=== PATIENT | male | born 1955 ===

== ENCOUNTER 2017-12-21 16:03 | Emergency (ER) | payer MEDICAID ==
--- NOTE | 2017-12-21 16:32 | ED PDOC ---
Arrival/HPI - General Time Seen by Provider: 12/21/17 16:20 Historian: Patient, Spouse () - History of Present Illness Narrative History of Present Illness (Text): 12/21/17 16:28 A 62 year old male, whose past medical history includes AICD pacemaker (patient currently taking blood thinners), and 1 stent to heart, whom is accompanied by , presents to the emergency department complaining of lower back pain and cough. Patient reports having back pain for 1 week and has difficulty sitting, laying down, and moving around due to pain. Notes associated cough makes pain worse. Patient mentions also feeling as though "something is stuck in throat" causing cough. States visiting his doctor and was prescribed cough medication but has had no relief. Patient denies any fall, appetite changes, difficulty speaking or swallowing, or any other complaints at this time. Denies any EtOH abuse and no longer smokes (has not smoked for 2 years). Past Medical History - Provider Review Nursing Documentation Reviewed: Yes Family/Social History - Physician Review Nursing Documentation Reviewed: Yes Family/Social History: No Known Family HX Allergies/Home Meds Allergies/Adverse Reactions: Allergies No Known Allergies Allergy (Verified 12/21/17 16:47) Review of Systems - Physician Review All systems were reviewed & negative as marked: Yes - Review of Systems Constitutional: absent: Other (no falls) ENT: absent: Sore Throat Respiratory: Cough (worsens back pain). absent: SOB Gastrointestinal: absent: Appetite Changes Musculoskeletal: Back Pain (lower) Physical Exam Vital Signs Reviewed: Yes Vital Signs Temp Pulse Resp BP Pulse Ox 12/21/17 16:35 97.9 F 70 18 114/51 L 94 L - Systems Exam Head: Present: Atraumatic, Normocephalic Pupils: Present: PERRL Extroacular Muscles: Present: EOMI Conjunctiva: Present: Normal Mouth: Present: Moist Mucous Membranes Neck: Present: Normal Range of Motion Respiratory/Chest: Present: Clear to Auscultation, Good Air Exchange, Other ( palpable left upper chest wall pacemaker). No: Respiratory Distress, Accessory Muscle Use Cardiovascular: Present: Regular Rate and Rhythm, Normal S1, S2. No: Murmurs Abdomen: Present: Normal Bowel Sounds. No: Tenderness, Distention, Peritoneal Signs Back: Present: Paraspinal Tenderness (right para-lumbar tenderness to palpation) Upper Extremity: Present: Normal Inspection. No: Cyanosis, Edema Lower Extremity: Present: Normal Inspection, Neurovascularly Intact, Other ( negative straight leg raise). No: Edema Neurological: Present: GCS=15, CN II-XII Intact, Speech Normal Skin: Present: Warm, Dry, Normal Color. No: Rashes Psychiatric: Present: Alert, Oriented x 3, Normal Insight, Normal Concentration Medical Decision Making ED Course and Treatment: 12/21/17 16:32 Impression: 62 year old male with lower back pain and associated cough that worsens pain. Physical exam show para-lumbar tenderness to palpation; negative straight leg raise; palpable left upper chest wall pacemaker. Plan: -- Chest X-ray -- Reassess and disposition Progress Notes: - RAD Interpretation Radiology Orders: 12/21/17 16:54 CHEST TWO VIEWS (PA/LAT) [RAD] Stat - Medication Orders Current Medication Orders: Tramadol HCl (Ultram) 50 mg PO STAT STA Stop: 12/21/17 17:35 - Scribe Statement The provider has reviewed the documentation as recorded by the Howard Ball Provider Scribe Attestation: All medical record entries made by the Scribe were at my direction and personally dictated by me. I have reviewed the chart and agree that the record accurately reflects my personal performance of the history, physical exam, medical decision making, and the department course for this patient. I have also personally directed, reviewed, and agree with the discharge instructions and disposition. Disposition/Present on Arrival - Present on Arrival Any Indicators Present on Arrival: No History of DVT/PE: No History of Uncontrolled Diabetes: No Urinary Catheter: No History of Decub. Ulcer: No - Disposition Have Diagnosis and Disposition been Completed?: Yes Diagnosis: Back pain, Cough Disposition: HOME/ ROUTINE Disposition Time: 17:40 Patient Plan: Discharge Condition: STABLE Prescriptions: Promethazine DM [Phenergan DM Syrup] 10 ml PO TID PRN #120 ml PRN Reason: Cough traMADol [Ultram] 50 mg PO TID PRN #20 tab PRN Reason: Muscle Spasm
[2017-12-21 16:36] VITALS: BP 114/51; PULSE 70; RESP 18; TEMP 97.9; O2SAT 94
--- NOTE | 2017-12-21 18:04 | RAD ---
HISTORY: Cough. COMPARISON: No prior. TECHNIQUE: Chest PA and lateral FINDINGS: LUNGS: No active pulmonary disease. PLEURA: No significant pleural effusion identified. No pneumothorax apparent. CARDIOVASCULAR: No radiographic findings to suggest acute or significant cardiovascular disease. Position/ configuration of pacemaker device: Satisfactory. OSSEOUS STRUCTURES: No significant abnormalities. VISUALIZED UPPER ABDOMEN: Normal. OTHER FINDINGS: None. IMPRESSION: No active disease.
== END 2017-12-21 17:47 | disposition home or self-care (01) ==
LOC: MERGE 16:03 → ED 16:03
DX: M54.5 Low back pain (principal); R05 Cough

== ENCOUNTER 2018-07-26 14:52 | Observation (INO) | payer MEDICAID ==
[2018-07-26 14:52] VITALS: BMI 29.2
--- NOTE | 2018-07-26 15:35 | ED PDOC ---
Arrival/HPI - General Chief Complaint: Shortness Of Breath Time Seen by Provider: 07/26/18 15:22 Historian: Patient - History of Present Illness Narrative History of Present Illness (Text): 07/26/18 15:35 Patient is a 62 year old male whose past medical history includes AICD pacemaker (place 3 years ago) presenting with a complaint of productive cough with green phlegm. Patient was recently diagnosed with pneumonia approximately 2 weeks ago. He was first treated as an outpatient by his PMD with an antibiotic for 5 days. His cough did not resolve so he was instructed to go to the emergency room. [place] [facility] [place] with pneumonia and "water on the lung". They wanted to keep him inpatient but he refused. He was given antibiotics for 7 days. Patient states that he took the complete course but did not get better. He called his primary care physician who instructed him to come back to the emergency room. Patient also reports that as he has been having coughing episodes, he has been shocked by his defibrillator multiple times over the past couple of days. He has been experiencing episodes of shortness of breath, chest pain and worsening fatigue. He is experiencing intermittent cramping. Denies fevers, chills, nausea, vomiting, diarrhea, constipation, headaches, numbness or tingling. Patient admitted medical non-compliance to nursing staff. PMD: Dr. Cruz Cardiology: Dr. George Owens ACID information: [email or web address] Model/Serial: [id number] Lead: [id number] 07/26/18 16:35 Time/Duration: > month Symptom Course: Unchanged Quality: Cramping (abd), Other (shocking - chest) Past Medical History - Provider Review Nursing Documentation Reviewed: Yes - Infectious Disease Hx of Infectious Diseases: None - Cardiac Hx Pacemaker: Yes Other/Comment: cardiac stent - Pulmonary Hx Respiratory Disorders: Yes Hx Chronic Obstructive Pulmonary Disease (COPD): Yes Hx Pneumonia: Yes - Neurological Hx Neurological Disorder: Yes HX Cerebrovascular Accident: Yes (2015-LOSS PERIPHERIAL VISION LEFT EYE) - HEENT Hx HEENT Disorder: Yes Other/Comment: HX: 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 - Renal Hx Renal Disorder: No - Endocrine/Metabolic Hx Endocrine Disorders: No - Hematological/Oncological Hx Blood Disorders: No - Integumentary Hx Dermatological Disorder: No - Musculoskeletal/Rheumatological Hx Musculoskeletal Disorders: Yes Other/Comment: HX: TORN [place]ANI[place] RIGHT KNEE - Gastrointestinal Hx Gastrointestinal Disorders: No - Genitourinary/Gynecological Hx Genitourinary Disorders: Yes Hx Prostate Problems: Yes Other/Comment: HX:STRICTURE - Psychiatric Hx Psychophysiologic Disorder: No Hx Substance Use: No - Surgical History Hx Coronary Stent: Yes (X3) - Anesthesia Hx Anesthesia: Yes Hx Anesthesia Reactions: No Hx Malignant Hyperthermia: No Family/Social History - Physician Review Nursing Documentation Reviewed: Yes Family/Social History: Unknown Family HX Smoking Status: Former Smoker Hx Alcohol Use: No Hx Substance Use: No Allergies/Home Meds Allergies/Adverse Reactions: Allergies No Known Allergies Allergy (Verified 05/26/17 09:59) Home Medications: Home Meds Medication Instructions Recorded Confirmed Aspirin [Aspirin Chewable] 81 mg PO DAILY 07/26/18 07/26/18 Atorvastatin [Lipitor] 20 mg PO DAILY 07/26/18 07/26/18 Carvedilol [Coreg] 6.25 mg PO BID 07/26/18 07/26/18 Clopidogrel [Plavix] 75 mg pe PO DAILY 07/26/18 07/26/18 Valsartan [Diovan] 80 mg PO DAILY 07/26/18 07/26/18 Review of Systems - Physician Review All systems were reviewed & negative as marked: Yes - Review of Systems Constitutional: Fatigue. absent: Weight Change, Fevers, Night Sweats Eyes: Normal. absent: Vision Changes ENT: Normal. absent: Sore Throat Respiratory: SOB, Cough, Sputum (green). absent: Wheezing Cardiovascular: Chest Pain (shocking pain). absent: Palpitations, Edema, Calf Pain, HERNANDEZ, Syncope Gastrointestinal: Abdominal Pain (cramping). absent: Constipation, Diarrhea, Nausea, Vomiting, Appetite Changes Genitourinary Male: Normal. absent: Dysuria, Frequency Musculoskeletal: Normal Skin: Normal. absent: Rash Neurological: Normal. absent: Headache, Dizziness Endocrine: Normal. absent: Diaphoresis Hemo/Lymphatic: Normal Psychiatric: Normal. absent: Anxiety, Depression Physical Exam Vital Signs Reviewed: Yes Vital Signs Temp Pulse Resp BP Pulse Ox 07/26/18 15:17 18 07/26/18 15:02 98.3 F 66 20 156/93 H 96 Temperature: Afebrile Blood Pressure: Hypertensive Pulse: Regular Respiratory Rate: Normal Appearance: Positive for: Well-Appearing, Non-Toxic, Comfortable Pain Distress: None Mental Status: Positive for: Alert and Oriented X 3 - Systems Exam Head: Present: Atraumatic, Normocephalic Pupils: Present: PERRL Extroacular Muscles: Present: EOMI Conjunctiva: Present: Normal Mouth: Present: Moist Mucous Membranes Pharnyx: Present: Normal. No: ERYTHEMA, EXUDATE, TONSILS ENLARGED Nose (Internal): Present: Normal Inspection, No Active Bleeding, Moist Neck: Present: Normal Range of Motion. No: JVD, Lymphadenopathy Respiratory/Chest: Present: Clear to Auscultation, Decreased Breath Sounds ( bases b/l). No: Good Air Exchange, Respiratory Distress, Accessory Muscle Use, Rales, Retracting, Rhonchi, Tachypneic Cardiovascular: Present: Regular Rate and Rhythm, Normal S1, S2. No: Murmurs Abdomen: No: Tenderness, Distention, Peritoneal Signs Upper Extremity: Present: Normal Inspection, NORMAL PULSES. No: Cyanosis, Edema Lower Extremity: Present: Normal Inspection, NORMAL PULSES. No: Edema, CALF TENDERNESS Neurological: Present: GCS=15, Speech Normal, Motor Func Grossly Intact Skin: Present: Warm, Dry, Normal Color. No: Rashes Lymphatic: No: Cervical Adenopathy Psychiatric: Present: Alert, Oriented x 3, Normal Insight, Normal Concentration Medical Decision Making ED Course and Treatment: 07/26/18 16:12 Patient is a 62 year old male who was recently diagnosed with pneumonia who has failed outpatient therapy twice. He also reports his AICD shocking him multiple times over the past week. [email or web address] was called and requested to come interrogate AICD device. Labs, cxr and ekg EKG shows ventricularly paced rhythm at 70bpms 07/26/18 17:34 Patient still coughing. Given duoneb, solumedrol, zosyn, vanco Called and discussed case with Dr. Perkins. Patient will be admitted to tele observation for chest pain (possible discharge of AICD), COPD exacerbation and poss. pneumonia. Patient is still waiting for [email or web address] to interrogate AICD. Re-evaluation Time: 17:42 Reassessment Condition: Re-examined, Unchanged - Lab Interpretations Lab Results: 07/26/18 15:30 07/26/18 15:30 Lab Results 07/26/18 15:30: Sodium 142, Chloride 104, Potassium 4.6, Carbon Dioxide 28, Anion Gap 15, BUN 14, Creatinine 1.0, Est GFR ( Amer) > 60, Est GFR (Non- Af Amer) > 60, Random Glucose 105, Calcium 9.6, Magnesium 2.1, Total Bilirubin 0.8, AST 19, ALT 10, Alkaline Phosphatase 79, Lactate Dehydrogenase 400, Total Creatine Kinase 38, Troponin I < 0.01, Total Protein 8.0, Albumin 4.2, Globulin 3.8, Albumin/Globulin Ratio 1.1 07/26/18 15:30: WBC 7.4, RBC 4.74, Hgb 14.7, Hct 44.0, MCV 92.8, MCH 31.0, MCHC 33.4, RDW 12.9, Plt Count 316, MPV 8.7, Gran % 52.7, Lymph % (Auto) 25.3, [place] % (Auto) 19.0 H, Eos % (Auto) 2.9, Baso % (Auto) 0.1, Gran # 3.88, Lymph # (Auto ) 1.9, [place] # (Auto) 1.4 H, Eos # (Auto) 0.2, Baso # (Auto) 0.01 07/26/18 15:30: pO2 40, VBG pH 7.37, VBG pCO2 52.0, VBG HCO3 30.1 H, VBG Total CO2 31.7 H, VBG O2 Sat (Calc) 73.0 H, VBG Base Excess 3.6 H, VBG Potassium 4.4, Sodium 139.0, Chloride 107.0, Glucose 111 H, Lactate 0.8, FiO2 21.0, Venous Blood Potassium 4.4 I have reviewed the lab results: Yes - RAD Interpretation Narrative RAD Interpretations (Text): 07/26/18 17:41 CXR - possible infiltrate in LLL in relation to obscuring of lateral heart boarder when compared to previous CXR on 12/2017. Radiology Orders: 07/26/18 15:27 CXR [CHEST TWO VIEWS (PA/LAT)] [RAD] Stat Doll Maker: ED Physician - EKG Interpretation EKG Interpretation (Text): 07/26/18 16:16 EKG - Ventricularly paced rhythm at 70 bpms Interpreted by ED Physician: Yes Type: 12 lead EKG - Medication Orders Current Medication Orders: Vancomycin HCl (Vancomycin 1gm) 1 gm in 250 mls @ 167 mls/hr IVPB STAT STA PRN Reason: Protocol Stop: 07/26/18 18:48 Piperacillin Sod/Tazobactam Sod (Zosyn 3.375 In Ns 100ml) 100 mls @ 200 mls/hr IVPB STAT STA PRN Reason: Protocol Stop: 07/26/18 17:48 Discontinued Medications Albuterol/Ipratropium (Duoneb 3 Mg/0.5 Mg (3 Ml) Ud) 3 ml IH STAT STA Stop: 07/26/18 17:20 Methylprednisolone (Solu-Medrol) 125 mg IVP STAT STA Stop: 07/26/18 17:20 Disposition/Present on Arrival - Present on Arrival Any Indicators Present on Arrival: No History of DVT/PE: No History of Uncontrolled Diabetes: No Urinary Catheter: No History of Decub. Ulcer: No History Surgical Site Infection Following: None - Disposition Have Diagnosis and Disposition been Completed?: Yes Diagnosis: Chest pain, COPD (chronic obstructive pulmonary disease) Disposition: HOSPITALIZED Disposition Time: 17:30 Patient Plan: Observation, Telemetry Patient Problems: Current Active Problems Problem Status Onset COPD (chronic obstructive pulmonary disease) Acute Chest pain Acute Condition: GUARDED Discharge Instructions (ExitCare): Chest Pain (ED) Forms: [employer] (Slovak)
[2018-07-26 15:38] VITALS: RESP 18
[2018-07-26 15:45] LABS: VENOUS BLOOD GAS BASE EXCESS 3.6 mmol/L (0.0-2.0); VENOUS BLOOD GAS PO2 40 mm/Hg (30-55); VENOUS BLOOD PH 7.37 (7.32-7.43)
[2018-07-26 15:47] LABS: BASO # 0.01 K/mm3 (0.0-2.0); BASO % 0.1 % (0.0-3.0); EOS # 0.2 (0.0-0.7); EOS % 2.9 % (1.5-5.0); GRAN # 3.88 (1.4-6.5); GRAN % 52.7 % (50.0-68.0); HEMOGLOBIN 14.7 g/dL (14.0-18.0); LYMPH # 1.9 (1.2-3.4); LYMPH % 25.3 % (22.0-35.0); MEAN CELL VOLUME 92.8 fl (80.0-105.0); MEAN CORPUSCULAR HGB CONC 33.4 g/dl (31.0-37.0); MEAN PLATELET VOLUME 8.7 fl (7.0-11.0); MONO # 1.4 (0.1-0.6); RBC 4.74 10^6/uL (3.5-6.1); RED CELL DISTRIBUTION WIDTH 12.9 % (11.5-14.5); WHITE BLOOD COUNT 7.4 10^3/ul (4.5-11.0)
[2018-07-26 15:56] LABS: ALB/GLOB RATIO 1.1 (1.1-1.8); ALBUMIN 4.2 g/dL (3.0-4.8); ALT/SGPT 10 U/L (7-56); AST/SGOT 19 U/L (17-59); BLOOD UREA NITROGEN 14 mg/dL (7-21); CALCIUM 9.6 mg/dL (8.4-10.5); GFR NON-AFRICAN AMERICAN > 60
[2018-07-26 16:07] LABS: TROPONIN I < 0.01 ng/mL
--- NOTE | 2018-07-26 17:13 | RAD ---
Date of service: 07/26/2018 HISTORY: r/o pneumonia COMPARISON: 12/21/2017 TECHNIQUE: Chest PA and lateral FINDINGS: LUNGS: No active pulmonary disease. PLEURA: No significant pleural effusion identified. No pneumothorax apparent. CARDIOVASCULAR: Normal. OSSEOUS STRUCTURES: No significant abnormalities. VISUALIZED UPPER ABDOMEN: Normal. OTHER FINDINGS: None. IMPRESSION: No active disease.
[2018-07-26] MEDS ORDERED: Albuterol-Ipratrop 3 mg / 0.5 (3 ml) UD IH STA (17:19)
[2018-07-26] MEDS ORDERED: Piperacillin/Tazobact 3.375 gm 100 ML IVPB STA (17:19)
[2018-07-26] MEDS ORDERED: Vancomycin 1gm in NS 250ml 1 GM/250 ML BAG IVPB STA (17:19)
[2018-07-26 19:24] LABS: URINE BILIRUBIN NEGATIVE (NEGATIVE); URINE BLOOD NEGATIVE (NEGATIVE); URINE GLUCOSE (UA) NEGATIVE (NEGATIVE); URINE LEUKOCYTE ESTERASE NEGATIVE Leu/uL (NEGATIVE); URINE PROTEIN NEGATIVE mg/dL (<30 mg/dL)
[2018-07-26 19:27] LABS: URINE APPEARANCE CLEAR (CLEAR); URINE COLOR YELLOW (YELLOW)
--- NOTE | 2018-07-26 21:57 | CP.PCM.HP ---
History of Present Illness - History of Present Illness History of Present Illness: Dinoy Daley DO PGY-1, H&P for hospitalist CC: CP, AICD firing, SOB This is a 62 year old male with PMH of AICD placed 3 years ago for low heart rate, CHF, HTN, HLD, BPH, CVA x3, CAD with 3 stents 2016, right carotid stenosis 70%, PVD who presents to the ED with complaints of his AICD firing for the past 3 days, and associated chest discomfort. Pt describes the shocks/ discomfort as 1 shock per day, tightness under the left pectoral muscle and right lower abdomen. Pt reports a 1 month history of cough productive of green sputum, with associated SOB. SOB is described as exertional dyspnea, and a feeling of breathlessness after coughing fits. Pt states that he has a had a tactile fever and diaphoresis with this illness. Pt was seen at [facility] [place] ED 2 weeks ago, where he was prescribed a 5 day course of antibiotics (unknown name), which he completed. Pt's symptoms did not resolve and he presented to his PMD's office, who prescribed him a 7 day course of antibiotics (name unknown), which he also completed. Pt subsequently developed diarrhea for the past week, described as 3-4 beige-colored loose bowel movements per day, with crampy abdominal pain. Pt denies headache, weakness, dizziness, lightheadedness, hematemasis, hematochezia, melena, palpitations, new paresthesias, leg pain or swelling, recent hospitalization, recent travel. AICD information: [employer] Model/Serial: [id number] Lead: [id number] A 12-point ROS was reviewed and is otherwise unremarkable. PMD: Nancy Cardiology: George Owens PMH: AICD placed 3 years ago for low heart rate, CHF, HTN, HLD, BPH, CVA x3, CAD with 3 stents 2016, right carotid stenosis 70%, PVD PSH: AICD placement, Left knee arthroscopy due to torn cartilage 10 years ago FHx: Father did of prostate CA at age 65, Mother of CHF at age 63 Social Hx: Lives with son and grandchildren in [place]. 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 (+) 80 pack year history, quit 3 years ago, (-) etoh, (- ) illicit drug use Meds: see MAR, Albuterol nebulizer Allx: NKDA Present on Admission - Present on Admission Any Indicators Present on Admission: No Review of Systems - Review of Systems All systems: reviewed and no additional remarkable complaints except (as per HPI ) Past Patient History - Infectious Disease Hx of Infectious Diseases: None - Past Medical History & Family History Past Medical History?: Yes - Past Social History Smoking Status: Former Smoker - CARDIAC Hx Pacemaker: Yes Other/Comment: cardiac stent - PULMONARY Hx Respiratory Disorders: Yes Hx Chronic Obstructive Pulmonary Disease (COPD): Yes Hx Pneumonia: Yes - NEUROLOGICAL Hx Neurological Disorder: Yes HX Cerebrovascular Accident: Yes (2014-LOSS PERIPHERIAL VISION LEFT EYE) - HEENT Hx HEENT Problems: Yes Other/Comment: HX: 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 - RENAL Hx Chronic Kidney Disease: No - ENDOCRINE/METABOLIC Hx Endocrine Disorders: No - HEMATOLOGICAL/ONCOLOGICAL Hx Blood Disorders: No - INTEGUMENTARY Hx Dermatological Problems: No - MUSCULOSKELETAL/RHEUMATOLOGICAL Hx Musculoskeletal Disorders: Yes Other/Comment: HX: TORN [place] RIGHT KNEE - GASTROINTESTINAL Hx Gastrointestinal Disorders: No - GENITOURINARY/GYNECOLOGICAL Hx Genitourinary Disorders: Yes Hx Prostate Problems: Yes Other/Comment: HX:STRICTURE - PSYCHIATRIC Hx Psychophysiologic Disorder: No Hx Substance Use: No - SURGICAL HISTORY Hx Coronary Stent: Yes (X3) - ANESTHESIA Hx Anesthesia: Yes Hx Anesthesia Reactions: No Hx Malignant Hyperthermia: No Meds Allergies/Adverse Reactions: Allergies Allergy/AdvReac Type Severity Reaction Status Date / Time No Known Allergies Allergy Verified 05/26/17 09:59 Physical Exam - Constitutional Appears: Non-toxic, No Acute Distress - Head Exam Head Exam: ATRAUMATIC - Eye Exam Eye Exam: EOMI, PERRL - ENT Exam ENT Exam: Mucous Membranes Moist - Neck Exam Neck exam: Positive for: Normal Inspection Additional comments: (-) carotid bruit - Respiratory Exam Respiratory Exam: Decreased Breath Sounds (in bilateral bases), Rales (scattered ), NORMAL BREATHING PATTERN. absent: Chest Wall Tenderness, Rhonchi, Wheezes Additional comments: (+) PPM, left Chest wall, no signs of infection - Cardiovascular Exam Cardiovascular Exam: REGULAR RHYTHM - GI/Abdominal Exam GI & Abdominal Exam: Normal Bowel Sounds, Soft, Tenderness (mild diffuse abdominal tenderness). absent: Distended, Firm, Organomegaly - Extremities Exam Extremities exam: Positive for: normal capillary refill, pedal pulses present (2 + bilateral lower extremities). Negative for: calf tenderness, normal inspection ((+) varicose veins, (+) hair loss in bilateral lower extremities), pedal edema - Back Exam Back exam: NORMAL INSPECTION - Neurological Exam Neurological exam: Alert, Normal Gait - Psychiatric Exam Psychiatric exam: Normal Affect, Normal Mood - Skin Skin Exam: Dry, Normal Color, Warm Results - Vital Signs Recent Vital Signs: Last Vital Signs Temp 98.3 F 07/26/18 15:02 Pulse 70 07/26/18 21:10 Resp 18 07/26/18 21:10 BP 149/71 07/26/18 21:10 Pulse Ox 96 07/26/18 21:10 - Labs Result Diagrams: 07/26/18 15:30 07/26/18 15:30 Labs: Laboratory Results - last 24 hr 07/26/18 19:10 Urine Color Yellow Urine Appearance Clear Urine pH 6.0 Ur Specific [place] 1.025 Urine Protein Negative Urine Glucose (UA) Negative Urine Ketones Negative Urine Blood Negative Urine Nitrate Negative Urine Bilirubin Negative Urine Urobilinogen 1.0 H Ur Leukocyte Esterase Negative Assessment & Plan - Assessment and Plan (Free Text) Assessment: This is a 62 year old male with PMH of AICD placed 3 years ago for low heart rate, CHF, HTN, HLD, BPH, CVA x3, CAD with 3 stents 2016, right carotid stenosis 70%, PVD who presents to the ED with complaints of his AICD firing for the past 3 days, and associated chest discomfort. Pt also reports productive cough for the past 1 month (received two courses of outpatient oral antibiotics ) associated with worsening SOB. In the ED, pt received duonebs, solumedrol 125 mg IVP, vancomycin and zosyn. Pt admitted to remote Telemetry for observation. Plan: 1. Chest pain r/o ACS, r/o AICD discharge, vs costochondritis secondary to cough - EKG shows ventricular paced rhythm - troponin x 1 negative, will trend troponin q6h x 2 - cardiology consulted, recs appreciated - will contact [employer] to interrogate AICD 2. Cough, likely bronchitis, less likely pneumonia, r/o CHF exacerbation, COPD exacerbation - BNP is elevated - lasix 40 mg IVP - duonebs - CXR was read as no active disease - f/u echocardiogram - strict I and O - lactate level is normal on vbg - f/u blood culture x 2 3. Hypertension - Losartan 50 mg PO QD 4. CAD with stents - ASA, Plavix, Carvedilol 6.25 mg PO BID, Atorvastatin 20 mg PO QD - cardiology consulted 5. HLD - Atorvastatin 20 mg PO QD - f/u lipid panel 6. PPX/Diet - pepcid, Heparin - HHD Case was reviewed and discussed with attending physician, Dr. Ed Herman
[2018-07-26 22:28] LABS: B-TYPE NATRIURETIC PEPTIDE 559 pg/mL (0-450); TROPONIN I < 0.01 ng/mL
[2018-07-27] MEDS ORDERED: Albuterol-Ipratrop 3 mg / 0.5 (3 ml) UD IH PRN (00:30)
[2018-07-27 04:28] LABS: GRAN # 3.96 (1.4-6.5); GRAN % 80.3 % (50.0-68.0); HEMOGLOBIN 14.8 g/dL (14.0-18.0); LYMPH # 0.8 (1.2-3.4); LYMPH % 15.4 % (22.0-35.0); MEAN CELL VOLUME 90.9 fl (80.0-105.0); MEAN CORPUSCULAR HEMOGLOBIN 30.6 pg (25.0-35.0); MEAN CORPUSCULAR HGB CONC 33.7 g/dl (31.0-37.0); MEAN PLATELET VOLUME 8.7 fl (7.0-11.0); MONO # 0.2 (0.1-0.6); MONO % 4.3 % (1.0-6.0); RBC 4.83 10^6/uL (3.5-6.1); RED CELL DISTRIBUTION WIDTH 12.7 % (11.5-14.5); WHITE BLOOD COUNT 4.9 10^3/ul (4.5-11.0)
[2018-07-27 04:36] LABS: BLOOD UREA NITROGEN 16 mg/dL (7-21); CALCIUM 9.8 mg/dL (8.4-10.5); GFR NON-AFRICAN AMERICAN > 60; HDL CHOLESTEROL 41 mg/dL (29-60)
[2018-07-27 04:46] LABS: LDL CHOLESTEROL 143 mg/dL (0-129)
[2018-07-27 04:47] LABS: TROPONIN I < 0.01 ng/mL
[2018-07-27] MEDS ORDERED: Pantoprazole 40 mg EC Tab PO SCH (06:00)
[2018-07-27 09:14] VITALS: TEMP 97.9
--- NOTE | 2018-07-27 15:25 | CARD ---
APPROVED REPORT Date of service: 07/26/2018 EKG Measurement Heart [id number] <Conclusion> Electronic ventricular pacemaker
[2018-07-27 17:03] VITALS: BP 131/88; PULSE 69; O2SAT 99
--- NOTE | 2018-07-27 17:30 | CP.PCM.PN ---
<Harry Prakash - Last Filed: 07/27/18 17:27> Subjective - Date & Time of Evaluation Date of Evaluation: 07/27/18 Time of Evaluation: 09:03 - Subjective Subjective: Harry Prakash DO PGY-1, Internal Medicine Resident. Hospitalist Progress Note Patient seen and examined at bedside. Patient is resting in bed. No acute events overnight. Patient denied any seizure activity since admission, SOB, CP, palpitations, headache, fever. Objective - Vital Signs/Intake and Output Vital Signs (last 24 hours): Temp Pulse Resp BP Pulse Ox 97.9 F 69 18 131/88 99 07/27/18 16:55 07/27/18 16:55 07/27/18 16:55 07/27/18 16:55 07/27/18 16:55 - Medications Medications: Current Medications Albuterol/Ipratropium (Duoneb 3 Mg/0.5 Mg (3 Ml) Ud) 3 ml IH [id number] PRN PRN Reason: Shortness of Breath Aspirin (Aspirin Chewable) 81 mg PO DAILY [facility] Last Admin: 07/27/18 12:12 Dose: 81 mg Atorvastatin Calcium (Lipitor) 20 mg PO DAILY [facility] Last Admin: 07/27/18 12:12 Dose: 20 mg Carvedilol (Coreg) 6.25 mg PO BID [facility] Clopidogrel Bisulfate (Plavix) 75 mg PO DAILY [facility] Last Admin: 07/27/18 12:12 Dose: 75 mg Famotidine (Pepcid) 20 mg PO 1000,2200 [facility] Last Admin: 07/27/18 12:12 Dose: 20 mg Heparin Sodium (Porcine) (Heparin) 5,000 units SC Q8 JESU PRN Reason: Protocol Last Admin: 07/27/18 06:18 Dose: 5,000 units Losartan Potassium (Cozaar) 50 mg PO DAILY [facility] Last Admin: 07/27/18 12:12 Dose: 50 mg - Labs Labs: 07/27/18 04:00 07/27/18 04:00 - Additional Findings Additional findings: - Constitutional Appears: Non-toxic, No Acute Distress - Head Exam Head Exam: ATRAUMATIC. - Eye Exam Eye Exam: EOMI, PERRL - ENT Exam ENT Exam: Mucous Membranes Moist - Neck Exam Neck exam: Positive for: Normal Inspection Additional comments: (-) carotid bruit - Respiratory Exam Respiratory Exam: Decreased Breath Sounds (in bilateral bases), Rales (scattered ), NORMAL BREATHING PATTERN. absent: Chest Wall Tenderness, Rhonchi, Wheezes Additional comments: (+) PPM, left Chest wall, no signs of infection - Cardiovascular Exam Cardiovascular Exam: REGULAR RHYTHM - GI/Abdominal Exam GI & Abdominal Exam: Normal Bowel Sounds, Soft, Tenderness (mild diffuse abdominal tenderness). absent: Distended, Firm, Organomegaly - Extremities Exam Extremities exam: Positive for: normal capillary refill, pedal pulses present (2 + bilateral lower extremities). Negative for: calf tenderness, normal inspection ((+) varicose veins, (+) hair loss in bilateral lower extremities), pedal edema - Back Exam Back exam: NORMAL INSPECTION - Neurological Exam Neurological exam: Alert, oriented - Psychiatric Exam Psychiatric exam: Normal Affect, Normal Mood - Skin Skin Exam: Dry, Normal Color, Warm. Assessment and Plan - Assessment and Plan (Free Text) Assessment: 62 y/o male with PMH of CHF, HTN, HLD, BPH, CVA x3, CAD with 3 stents, AICD placed, right carotid stenosis 70%, PVD who presents to the ED with complaints of his AICD firing for the past 3 days, and associated chest discomfort. Pt had pneumina for 1 month failed outpatient treatment then hospitalized. Plan: Chest pain r/o ACS EKG shows ventricular paced rhythm troponin (-) x3 CXR: no active disease admitted to [facility] for observation waiting for interrogation by [employer] personnel Echo done , read pending cardiology consulted SOB and Cough patient has persistent pneumonia x1 month. failed outpatient therapy. admitted inpatient and received IV abx. still have symptoms CXR: no active disease vancomycin and zosyn given in ED duonebs, solumedrol given lactate normal blood culture x2 done. f/u results CAD s/p stents continue home meds ASA, Plavix, Carvedilol BNP 559 continue home med lasix strict I and O HLD continue home med Atorvastatin lipid panel: LDL 143, CHOL 208 HTN Losartan 50 mg PO QD Prophylaxis pepcid for GI ppx Heparin for DVT ppx Heart halthy diet Case was reviewed and discussed with attending physician, Dr. Nogueira <Pedro Nogueira - Last Filed: 07/28/18 16:42> Objective - Vital Signs/Intake and Output Vital Signs (last 24 hours): Temp Pulse Resp BP Pulse Ox 97.9 F 69 18 131/88 99 07/27/18 16:55 07/27/18 16:55 07/27/18 16:55 07/27/18 16:55 07/27/18 16:55 - Labs Labs: 07/27/18 04:00 07/27/18 04:00 Attending/Attestation - Attestation I have personally seen and examined this patient.: Yes I have fully participated in the care of the patient.: Yes I have reviewed all pertinent clinical information, including history, physical exam and plan: Yes Notes (Text): 07/28/18 16:42 Medical record note made by the resident after discussion with my direction and input after the patient was personally seen and examined by me. I have reviewed the chart and agree that the record accurately reflects by personal performance of the history, physical exam, data review, and medical decision-making, in the course for the patient. I have also personally directed the plan of care. Management plan was discussed in detail with patient. Education was provided.
--- NOTE | 2018-07-27 20:05 | CARD ---
APPROVED REPORT Date of service: 07/27/2018 EXAM: Two-dimensional and M-mode echocardiogram with Doppler and color Doppler. INDICATION Congestive Heart Failure 2D DIMENSIONS Left Atrium (2D)5.0 (1.6-4.0cm)IVSd1.1 (0.7-1.1cm) LVDd4.0 (3.9-5.9cm)PWd1.2 (0.7-1.1cm) LVDs2.9 (2.5-4.0cm)FS (%) 26.7 % LVEF (%)52.8 (>50%) M-Mode DIMENSIONS Aortic Root3.40 (2.2-3.7cm)Aortic Cusp Exc.1.70 (1.5-2.0cm) Aortic Valve AoV Peak Uemuivuv032.0cm/Ramses Peak GR.6mmHg Mitral Valve E/A ratio0.0 TDI E/Lateral E'0.0E/Medial E'0.0 Pulmonary Valve PV Peak Fzwmjryp01.7cm/sPV Peak Grad.2mmHg Tricuspid Valve TR Peak [id number]/sRAP [id number] Peak Gr.28mmHg [id number] LEFT VENTRICLE The left ventricle is normal size. There is normal left ventricular wall thickness. The left ventricular ejection fraction is within the normal range. Apical motion consistent with pacemaker activation. RIGHT VENTRICLE The right ventricle is normal size. There is normal right ventricular wall thickness. The right ventricular systolic function is normal. There is a pacemaker lead in the right ventricle. ATRIA The left atrium is moderately dilated. The right atrium is moderately dilated. AORTIC VALVE The aortic valve is mildly thickened. No aortic regurgitation is present. There is no aortic valvular stenosis. MITRAL VALVE The mitral valve is mildly thickened. Mitral regurgitation is trace. There is no mitral valve stenosis. TRICUSPID VALVE The tricuspid valve is normal in structure. There is mild tricuspid regurgitation. There is mild pulmonary hypertension. GREAT VESSELS The aortic root is normal in size. The IVC is normal in size and collapses >50% with inspiration. PERICARDIAL EFFUSION There is a trace loculated anterior pericardial effusion. <Conclusion> The left ventricle is normal size. There is normal left ventricular wall thickness. The left ventricular ejection fraction is within the normal range. Apical motion consistent with pacemaker activation. There is mild tricuspid regurgitation. There is mild pulmonary hypertension.
--- NOTE | 2018-07-28 03:43 | CON ---
DATE: 07/27/2018 LOCATION: The patient is in emergency room, bed 600-07. REASON FOR CONSULTATION AND HISTORY OF PRESENT ILLNESS: The patient is having shocks in the chest. The patient is known to have AICD insertion. CHF, hypertension, CVA, coronary artery disease, stent insertions, carotid artery stenosis, PVD, who presented to the emergency room that since last several days he is getting firing of AICD with sharp jolt in the chest and upper abdomen. The patient denies any dizziness, syncope or otherwise any chest pain. The patient sees primary care physician, Dr. 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 The patient's AICD was inserted about 3 years ago. The patient is also known to have atrial fibrillation, history of coronary artery disease with stent insertion. The patient recently was treated with community-acquired pneumonia. PAST MEDICAL HISTORY: Positive for IN about 3 years ago and also had AICD insertion 3 years ago where he has multiple stents put in at that time. The patient also had torn cartilage in the right knee, for which he has arthroscopy about 15 years ago. The patient was told that in 2014, he had a CVA that cause him peripheral vision loss. The patient states he was told that his carotid artery has 70% stenosis, but he was transferred to [facility], but at that time, medical therapy was suggested to him. As mentioned before, the patient had IN 3 years ago and had stent insertions. PERSONAL HISTORY: He used to smoke 2 packs a day, started at age of 16. He stopped 3 years ago when he had IN. He used to drink 1-2 beers a day until 3 years ago. Denied any taking illicit drugs. REVIEW OF SYSTEMS: The patient denies any exertional chest pain. He says when he walks, he gets shortness of breath. All the systems reviewed, positive mentioned in the history, others are negative. LIST OF MEDICATIONS AT HOME: The patient is taking aspirin 81 daily, Diovan 80 mg daily, Lipitor 20 mg daily, Coreg 6.25 b.i.d., Plavix 75 mg daily. PHYSICAL EXAMINATION VITAL SIGNS: Blood pressure 149/71, respirations 18, pulse 70, temperature 98.3. HEENT: Head is normocephalic. Eyes: Pupils normal, conjunctivae normal. NECK: JVP low, carotid equal. THORAX: AP diameter normal. AICD insertion in the left upper chest. LUNGS: Clear. ABDOMEN: Soft, nontender. No organomegaly. EXTREMITIES: No edema, no clubbing, no cyanosis. LABORATORY DATA: Chest x-ray is clear. EKG showed pacemaker underlying rhythm, atrial fibrillation. WBC 4.9, hemoglobin 14.8, hematocrit 43.9, platelets 308. Sodium of 138, potassium 4.5, BUN 16, creatinine 0.9. Random sugar on admission was 105, this morning 210. Troponin x3 is negative. Anti-proB natriuretic peptide 559 which is not significant. Cholesterol 208, triglycerides 51, HDL 41. DIAGNOSES: Firing of the defibrillator, rule out cardiac arrhythmia, cardiomyopathy, ischemic; history of myocardial infarction, history of stent insertion, atrial fibrillation, hypertension, previous history of stroke with peripheral loss of vision, hyperlipidemia, carotid artery stenosis, peripheral vascular disease. PLAN: We will call the AICD medical office representative to come and interrogate the AICD and in the meantime, we will continue the medication aspirin 81 mg daily, Diovan 80 daily, Lipitor 20 daily, Coreg 6.25 b.i.d., Plavix 75 daily and we will follow with you. Pedro Almazan MD
--- NOTE | 2018-07-29 16:13 | CP.PCM.DIS ---
<Harry Prakash - Last Filed: 07/29/18 16:14> Provider - Provider Date of Admission: 07/26/18 17:29 Attending physician: Pedro Nogueira MD Consults: cardio Time Spent in preparation of Discharge (in minutes): 40 Hospital Course - Lab Results Lab Results: Most Recent Lab Values WBC 4.9 10^3/ul (4.5-11.0) D 07/27/18 04:00 RBC 4.83 10^6/uL (3.5-6.1) 07/27/18 04:00 Hgb 14.8 g/dL (14.0-18.0) 07/27/18 04:00 Hct 43.9 % (42.0-52.0) 07/27/18 04:00 MCV 90.9 fl (80.0-105.0) 07/27/18 04:00 MCH 30.6 pg (25.0-35.0) 07/27/18 04:00 MCHC 33.7 g/dl (31.0-37.0) 07/27/18 04:00 RDW 12.7 % (11.5-14.5) 07/27/18 04:00 Plt Count 308 10^3/uL (120.0-450.0) 07/27/18 04:00 MPV 8.7 fl (7.0-11.0) 07/27/18 04:00 Gran % 80.3 % (50.0-68.0) H 07/27/18 04:00 Lymph % (Auto) 15.4 % (22.0-35.0) L 07/27/18 04:00 [place] % (Auto) 4.3 % (1.0-6.0) 07/27/18 04:00 Eos % (Auto) 0.0 % (1.5-5.0) L 07/27/18 04:00 Baso % (Auto) 0.0 % (0.0-3.0) 07/27/18 04:00 Gran # 3.96 (1.4-6.5) 07/27/18 04:00 Lymph # (Auto) 0.8 (1.2-3.4) L 07/27/18 04:00 [place] # (Auto) 0.2 (0.1-0.6) 07/27/18 04:00 Eos # (Auto) 0.0 (0.0-0.7) 07/27/18 04:00 Baso # (Auto) 0.00 K/mm3 (0.0-2.0) 07/27/18 04:00 pO2 40 mm/Hg (30-55) 07/26/18 15:30 VBG pH 7.37 (7.32-7.43) 07/26/18 15:30 VBG pCO2 52.0 (40-60) 07/26/18 15:30 VBG HCO3 30.1 mmol/l (21-28) H 07/26/18 15:30 VBG Total CO2 31.7 mmol.L (22-28) H 07/26/18 15:30 VBG O2 Sat (Calc) 73.0 % (40-65) H 07/26/18 15:30 VBG Base Excess 3.6 mmol/L (0.0-2.0) H 07/26/18 15:30 VBG Potassium 4.4 mmol/L (3.6-5.2) 07/26/18 15:30 Sodium 139.0 mmol/L (132-148) 07/26/18 15:30 Chloride 107.0 mmol/L (98-107) 07/26/18 15:30 Glucose 111 mg/dl (75-110) H 07/26/18 15:30 Lactate 0.8 mmol/L (0.7-2.1) 07/26/18 15:30 FiO2 21.0 % 07/26/18 15:30 Sodium 138 mmol/L (132-148) 07/27/18 04:00 Potassium 4.5 mmol/L (3.6-5.0) 07/27/18 04:00 Chloride 102 mmol/L (98-107) 07/27/18 04:00 Carbon Dioxide 25 mmol/L (21-33) 07/27/18 04:00 Anion Gap 16 (10-20) 07/27/18 04:00 BUN 16 mg/dL (7-21) 07/27/18 04:00 Creatinine 0.9 mg/dl (0.8-1.5) 07/27/18 04:00 Est GFR ( Amer) > 60 07/27/18 04:00 Est GFR (Non-Af Amer) > 60 07/27/18 04:00 Random Glucose 210 mg/dL (70-110) H 07/27/18 04:00 Calcium 9.8 mg/dL (8.4-10.5) 07/27/18 04:00 Magnesium 2.1 mg/dL (1.7-2.2) 07/26/18 15:30 Total Bilirubin 0.8 mg/dL (0.2-1.3) 07/26/18 15:30 AST 19 U/L (17-59) 07/26/18 15:30 ALT 10 U/L (7-56) 07/26/18 15:30 Alkaline Phosphatase 79 U/L (38-126) 07/26/18 15:30 Lactate Dehydrogenase 400 U/L (333-699) 07/26/18 15:30 Total Creatine Kinase 38 U/L (35-230) 07/26/18 15:30 Troponin I < 0.01 ng/mL 07/27/18 04:00 NT-Pro-B Natriuret Pep 559 pg/mL (0-450) H 07/26/18 22:02 Total Protein 8.0 g/dL (5.8-8.3) 07/26/18 15:30 Albumin 4.2 g/dL (3.0-4.8) 07/26/18 15:30 Globulin 3.8 gm/dL 07/26/18 15:30 Albumin/Globulin Ratio 1.1 (1.1-1.8) 07/26/18 15:30 Triglycerides 51 mg/dL (35-160) 07/27/18 04:00 Cholesterol 208 mg/dL (130-200) H 07/27/18 04:00 LDL Cholesterol Direct 143 mg/dL (0-129) H 07/27/18 04:00 HDL Cholesterol 41 mg/dL (29-60) 07/27/18 04:00 Venous Blood Potassium 4.4 mmol/L (3.6-5.2) 07/26/18 15:30 Urine Color Yellow (YELLOW) 07/26/18 19:10 Urine Appearance Clear (CLEAR) 07/26/18 19:10 Urine pH 6.0 (4.7-8.0) 07/26/18 19:10 Ur Specific [place] 1.025 (1.005-1.035) 07/26/18 19:10 Urine Protein Negative mg/dL (<30 mg/dL) 07/26/18 19:10 Urine Glucose (UA) Negative mg/dL (NEGATIVE) 07/26/18 19:10 Urine Ketones Negative mg/dL (NEGATIVE) 07/26/18 19:10 Urine Blood Negative (NEGATIVE) 07/26/18 19:10 Urine Nitrate Negative (NEGATIVE) 07/26/18 19:10 Urine Bilirubin Negative (NEGATIVE) 07/26/18 19:10 Urine Urobilinogen 1.0 E.U./dL (<1 E.U./dL) H 07/26/18 19:10 Ur Leukocyte Esterase Negative Zi/uL (NEGATIVE) 07/26/18 19:10 - Hospital Course Hospital Course: 62 y/o male with PMH of CHF, HTN, HLD, BPH, CVA x3, CAD with 3 stents, AICD placed, right carotid stenosis 70%, PVD who presents to the ED with complaints of his AICD firing for the past 3 days, and associated chest discomfort. Pt had pneumina for 1 month failed outpatient treatment then hospitalized. EKG shows ventricular paced rhythm. troponin (-) x3 CXR: no active disease admitted to [facility] for observation. Interrogation done by [employer] personnel with no abnormalities. Echo done with no acute findings. Cardiology consulted and recommended to continue home medications.Patient received vancomycin and zosyn for his persistent pneumonia, bronchodilators were also given. Patient decided to leave AMA. Risks for leaving AMA explained the patient including defibrillator misfiring, arrhythmia, and sudden . Patient did show capacity and understanding of the risks explained and continued to pursue AMA. Discharge Exam - Head Exam Head Exam: ATRAUMATIC - Additional Findings Additional findings: patient left AMA. No physical exam done Discharge Plan - Follow Up Plan Condition: GUARDED Disposition: AGAINST MEDICAL ADVICE Instructions: Chest Pain (ED) <Pedro Nogueira - Last Filed: 07/29/18 17:02> Provider - Provider Date of Admission: 07/26/18 17:29 Attending physician: Pedro Nogueira MD Hospital Course - Lab Results Lab Results: Most Recent Lab Values WBC 4.9 10^3/ul (4.5-11.0) D 07/27/18 04:00 RBC 4.83 10^6/uL (3.5-6.1) 07/27/18 04:00 Hgb 14.8 g/dL (14.0-18.0) 07/27/18 04:00 Hct 43.9 % (42.0-52.0) 07/27/18 04:00 MCV 90.9 fl (80.0-105.0) 07/27/18 04:00 MCH 30.6 pg (25.0-35.0) 07/27/18 04:00 MCHC 33.7 g/dl (31.0-37.0) 07/27/18 04:00 RDW 12.7 % (11.5-14.5) 07/27/18 04:00 Plt Count 308 10^3/uL (120.0-450.0) 07/27/18 04:00 MPV 8.7 fl (7.0-11.0) 07/27/18 04:00 Gran % 80.3 % (50.0-68.0) H 07/27/18 04:00 Lymph % (Auto) 15.4 % (22.0-35.0) L 07/27/18 04:00 [place] % (Auto) 4.3 % (1.0-6.0) 07/27/18 04:00 Eos % (Auto) 0.0 % (1.5-5.0) L 07/27/18 04:00 Baso % (Auto) 0.0 % (0.0-3.0) 07/27/18 04:00 Gran # 3.96 (1.4-6.5) 07/27/18 04:00 Lymph # (Auto) 0.8 (1.2-3.4) L 07/27/18 04:00 [place] # (Auto) 0.2 (0.1-0.6) 07/27/18 04:00 Eos # (Auto) 0.0 (0.0-0.7) 07/27/18 04:00 Baso # (Auto) 0.00 K/mm3 (0.0-2.0) 07/27/18 04:00 pO2 40 mm/Hg (30-55) 07/26/18 15:30 VBG pH 7.37 (7.32-7.43) 07/26/18 15:30 VBG pCO2 52.0 (40-60) 07/26/18 15:30 VBG HCO3 30.1 mmol/l (21-28) H 07/26/18 15:30 VBG Total CO2 31.7 mmol.L (22-28) H 07/26/18 15:30 VBG O2 Sat (Calc) 73.0 % (40-65) H 07/26/18 15:30 VBG Base Excess 3.6 mmol/L (0.0-2.0) H 07/26/18 15:30 VBG Potassium 4.4 mmol/L (3.6-5.2) 07/26/18 15:30 Sodium 139.0 mmol/L (132-148) 07/26/18 15:30 Chloride 107.0 mmol/L (98-107) 07/26/18 15:30 Glucose 111 mg/dl (75-110) H 07/26/18 15:30 Lactate 0.8 mmol/L (0.7-2.1) 07/26/18 15:30 FiO2 21.0 % 07/26/18 15:30 Sodium 138 mmol/L (132-148) 07/27/18 04:00 Potassium 4.5 mmol/L (3.6-5.0) 07/27/18 04:00 Chloride 102 mmol/L (98-107) 07/27/18 04:00 Carbon Dioxide 25 mmol/L (21-33) 07/27/18 04:00 Anion Gap 16 (10-20) 07/27/18 04:00 BUN 16 mg/dL (7-21) 07/27/18 04:00 Creatinine 0.9 mg/dl (0.8-1.5) 07/27/18 04:00 Est GFR ( Amer) > 60 07/27/18 04:00 Est GFR (Non-Af Amer) > 60 07/27/18 04:00 Random Glucose 210 mg/dL (70-110) H 07/27/18 04:00 Calcium 9.8 mg/dL (8.4-10.5) 07/27/18 04:00 Magnesium 2.1 mg/dL (1.7-2.2) 07/26/18 15:30 Total Bilirubin 0.8 mg/dL (0.2-1.3) 07/26/18 15:30 AST 19 U/L (17-59) 07/26/18 15:30 ALT 10 U/L (7-56) 07/26/18 15:30 Alkaline Phosphatase 79 U/L (38-126) 07/26/18 15:30 Lactate Dehydrogenase 400 U/L (333-699) 07/26/18 15:30 Total Creatine Kinase 38 U/L (35-230) 07/26/18 15:30 Troponin I < 0.01 ng/mL 07/27/18 04:00 NT-Pro-B Natriuret Pep 559 pg/mL (0-450) H 07/26/18 22:02 Total Protein 8.0 g/dL (5.8-8.3) 07/26/18 15:30 Albumin 4.2 g/dL (3.0-4.8) 07/26/18 15:30 Globulin 3.8 gm/dL 07/26/18 15:30 Albumin/Globulin Ratio 1.1 (1.1-1.8) 07/26/18 15:30 Triglycerides 51 mg/dL (35-160) 07/27/18 04:00 Cholesterol 208 mg/dL (130-200) H 07/27/18 04:00 LDL Cholesterol Direct 143 mg/dL (0-129) H 07/27/18 04:00 HDL Cholesterol 41 mg/dL (29-60) 07/27/18 04:00 Venous Blood Potassium 4.4 mmol/L (3.6-5.2) 07/26/18 15:30 Urine Color Yellow (YELLOW) 07/26/18 19:10 Urine Appearance Clear (CLEAR) 07/26/18 19:10 Urine pH 6.0 (4.7-8.0) 07/26/18 19:10 Ur Specific [place] 1.025 (1.005-1.035) 07/26/18 19:10 Urine Protein Negative mg/dL (<30 mg/dL) 07/26/18 19:10 Urine Glucose (UA) Negative mg/dL (NEGATIVE) 07/26/18 19:10 Urine Ketones Negative mg/dL (NEGATIVE) 07/26/18 19:10 Urine Blood Negative (NEGATIVE) 07/26/18 19:10 Urine Nitrate Negative (NEGATIVE) 09/16/18 19:10 Urine Bilirubin Negative (NEGATIVE) 07/26/18 19:10 Urine Urobilinogen 1.0 E.U./dL (<1 E.U./dL) H 07/26/18 19:10 Ur Leukocyte Esterase Negative Zi/uL (NEGATIVE) 07/26/18 19:10 Attending/Attestation - Attestation I have personally seen and examined this patient.: Yes I have fully participated in the care of the patient.: Yes I have reviewed all pertinent clinical information, including history, physical exam and plan: Yes Notes (Text): 07/29/18 16:5 62 y/o male with PMH of CHF, HTN, HLD, BPH, CVA x3, CAD with 3 stents, AICD placed, , PVD who presents to the ED with complaints of his AICD firing for the past 3 days, and associated chest discomfor.He was admitted in telemetry, was evaluated by cardiology. His Echo results were pending at the time of discharge.He did not want to wait for the result and wanted to leave the hospital. Patient is alert,awake and oriented.The need of hospital stay was discussed in detail with him.He has signed out against medical advice. 07/29/18 17:00
== END 2018-07-27 18:47 | disposition left against medical advice (07) ==
LOC: ED 14:52 → ERH 17:29 → 3RSO 07-27 14:29
PROVIDERS: ADMIT Internal Medicine; ATTEND Internal Medicine
DX: T82.199A Other mechanical complication of unspecified cardiac device, initial encounter (principal); J44.9 Chronic obstructive pulmonary disease, unspecified; I11.0 Hypertensive heart disease with heart failure; I50.9 Heart failure, unspecified; I25.10 Atherosclerotic heart disease of native coronary artery without angina pectoris; I69.398 Other sequelae of cerebral infarction; H54.7 Unspecified visual loss; I73.9 Peripheral vascular disease, unspecified; N40.0 Benign prostatic hyperplasia without lower urinary tract symptoms; I65.21 Occlusion and stenosis of right carotid artery; E78.5 Hyperlipidemia, unspecified; I25.2 Old myocardial infarction; I48.91 Unspecified atrial fibrillation; Y84.8 Other medical procedures as the cause of abnormal reaction of the patient, or of later complication, without mention of misadventure at the time of the procedure; Z87.891 Personal history of nicotine dependence; Z95.5 Presence of coronary angioplasty implant and graft
CPT/HCPCS: 71046; 80048; 80053; 80061; 81003; 82550; 82803; 83615; 83735; 83880; 84484; 85025; 87040; 93005; 93306; 96372; 96374; 96375; 99285; G0378; J1644; J1940; J2543; J2930